=== PATIENT | female | born 1960 | race Caucasian/White ===

== ENCOUNTER 2018-06-30 22:11 | Emergency (ER) | payer MEDICAID ==
[~2018-06-30] VITALS: Ht 149.9 cm; Wt 61.0 kg
[~2018-06-30 22:11] MED LIST: AMOX1TAB10 PO; BENA20TA65 PO; IBUP-1542 PO
[2018-06-30 22:28] VITALS: Ht 149.9 cm; Wt 61.0 kg
[2018-06-30] MEDS ORDERED: ASPIRIN 325 MG TAB PO STA (22:47)
--- NOTE | 2018-06-30 23:59 | ERD ---
ER Documentation Chief Complaint Chief Complaint shaky & palpitations today; hx HTN HPI This is a 58-year-old female with a history of hypertension who presents to the emergency room for evaluation of shakiness and heart palpitations. This patient states that she is taking a medication for high blood pressure but denies any history of diabetes, she denies any current chest pain, nausea vomiting or diarrhea. She denies any headache and states that since she has been in the emergency room her symptoms have improved. ROS All systems reviewed and are negative except as per history of present illness. Medications Home Meds Active Scripts Ibuprofen* (Motrin*) 600 Mg Tab, 600 MG PO Q8, #10 TAB Prov:GABRIEL SCHULTZ DO 12/19/15 Amoxicillin/Potassium Clav (Amox-Clav 875-125 mg Tablet) 875-125 mg Tab, 1 TAB PO BID for 7 Days, #14 TAB Prov:GABRIEL SCHULTZ DO 12/19/15 Reported Medications Benazepril Hcl* (Lotensin*) 20 Mg Tablet, 20 MG PO DAILY, #30 TAB 10/10/15 Allergies Allergies: Coded Allergies: No Known Allergy (Unverified , 12/26/15) PMhx/Soc History of Surgery: Yes (Tubal Ligation) Anesthesia Reaction: No Hx Neurological Disorder: No Hx Respiratory Disorders: No Hx Cardiac Disorders: Yes (HTN) Hx Psychiatric Problems: No Hx Miscellaneous Medical Probl: Yes (Dyslipidemia) Hx Alcohol Use: No Hx Substance Use: No Hx Tobacco Use: No Smoking Status: Never smoker Physical Exam Vitals Vital Signs Date Temp Pulse Resp B/P (MAP) Pulse Ox O2 O2 Flow FiO2 Time Delivery Rate 06/30/18 98.0 73 18 151/72 99 22:28 (98) Physical Exam INITIAL VITAL SIGNS: Reviewed by me GENERAL: The patient is well developed and appropriate for usual state of health in no apparent distress HEENT: Pupils equal, round, and reactive to light. EOMI. There is no scleral icterus. NECK: C-spine is soft and supple, there is no meningismus. There is no cervical lymphadenopathy. LUNGS: Clear to auscultation bilaterally. There are no rales, wheezes or rhonchi. HEART: Regular rate and rhythm, no murmurs, clicks, rubs or gallops. ABDOMEN: Soft, non-tender, non-distended. There are bowel sounds in all four quadrants. No rebound or guarding. EXTREMITIES: There is no peripheral cyanosis or edema. No focal swelling or erythema. NEUROLOGICAL: The patient moves all four extremities with 5/5 strength. Cranial nerves II - XII are intact. Normal gait. Alert and oriented SKIN: There is no apparent rash or petechiae. HEME/LYMPHATIC: There is no evidence of excessive bruising or lymphedema. PSYCHIATRIC: The patient does not appear anxious or depressed. Result Diagram: 06/30/18230206/30/182302 Results 24 hrs Laboratory Tests Test 06/30/18 23:03 White Blood Count 5.6 10^3/ul Red Blood Count 4.22 10^6/ul Hemoglobin 12.0 g/dl Hematocrit 36.7 % Mean Corpuscular Volume 87.0 fl Mean Corpuscular Hemoglobin 28.4 pg Mean Corpuscular Hemoglobin Concent 32.7 g/dl Red Cell Distribution Width 12.4 % Platelet Count 182 10^3/UL Mean Platelet Volume 11.7 fl Immature Granulocytes % 0.200 % Neutrophils % 47.2 % Lymphocytes % 33.3 % Monocytes % 8.6 % Eosinophils % 9.4 % Basophils % 1.3 % Nucleated Red Blood Cells % 0.0 /100WBC Immature Granulocytes # 0.010 10^3/ul Neutrophils # 2.6 10^3/ul Lymphocytes # 1.9 10^3/ul Monocytes # 0.5 10^3/ul Eosinophils # 0.5 10^3/ul Basophils # 0.1 10^3/ul Nucleated Red Blood Cells # 0.0 10^3/ul Sodium Level 140 mmol/L Potassium Level 4.1 mmol/L Chloride Level 109 mmol/L Carbon Dioxide Level 23 mmol/L Anion Gap 8 Blood Urea Nitrogen 18 mg/dl Creatinine 0.87 mg/dl Est Glomerular Filtrat Rate mL/min > 60 mL/min Glucose Level 110 mg/dl Calcium Level 9.9 mg/dl Troponin I < 0.012 ng/ml Current Medications Medications Dose Sig/Manuel Start Time Status Last (Trade) Ordered Route PRN Stop Time Admin Dose Reason Admin Aspirin 325 mg ONCE STAT 06/30/18 DC 06/30/18 (Aspirin) PO 22:47 23:00 06/30/18 22:48 Procedures/MDM EKG: Rate/Rhythm: [Normal Sinus Rhythm] QRS, ST, T-waves: [No changes consistent w/ acute ischemia] Impression: [No evidence of ischemia or arrhythmia] Chest X-ray 1V Interpreted by me: Soft Tissue: No acute abnormalities Bones: No acute abnormalities Mediastinum/Cardiac Silhouette/Lungs: [No acute abnormalities] This 58-year-old female presents the ER for evaluation of heart palpitations which have subsided since being in the emergency room. On my exam the patient is afebrile, nontoxic-appearing and hemodynamically stable. Her EKG is nonischemic at this time and chest x-ray is clear. Patient did have lab work drawn including a troponin which is normal. The patient has no electrolyte abno rmalities at this time. On my reevaluation the patient is sitting in bed comfortably and sleeping. The patient states that she is feeling much better and would like to go home. The patient will be discharged at this time with strict return precautions and she was advised that if she were to develop any chest pain that she can return to the ER immediately for admission. She verbalizes understanding and is okay with our plan of care Departure Diagnosis: Primary Impression: Heart palpitations Additional Impression: Episode of shaking Condition: ZULMA Whiteside DO Jun 30, 2018 23:59
[2018-07-01 00:05] VITALS: BP 113/71; PULSE 69; RESP 16
== END 2018-07-01 00:13 | disposition home or self-care (01) ==
LOC: E/R 22:11
DX: R00.2 Palpitations (principal); I10 Essential (primary) hypertension; R25.1 Tremor, unspecified
CPT/HCPCS: 36415; 71045; 80048; 84484; 85025; 93005; Z7502; Z7610

== ENCOUNTER 2018-07-03 22:34 | Emergency (ER) | payer MEDICAID ==
[~2018-07-03] VITALS: Ht 149.9 cm; Wt 61.2 kg
[2018-07-03 22:37] VITALS: Ht 149.9 cm; Wt 61.2 kg
[2018-07-04] MEDS ORDERED: hydrALAzine 20 MG INJ IV ONE
[2018-07-04 04:48] VITALS: BP 118/79; PULSE 72; RESP 15
--- NOTE | 2018-07-24 04:08 | ERD ---
ER Documentation Chief Complaint Chief Complaint states high bp at home, c/o headache, denies cp or sob. hx of htn HPI This a 58-year female states that she is a high blood pressure, complains of mild headache. She denies chest pain or shortness of breath. She does have history of hypertension and says she is been compliant with her medications. She denies any focal neurological complaints. Denies any visual acuity changes. ROS All systems reviewed and are negative except as per history of present illness. Medications Home Meds Reported Medications Benazepril Hcl* (Lotensin*) 20 Mg Tablet, 20 MG PO DAILY, #30 TAB 10/10/15 Allergies Allergies: Coded Allergies: No Known Allergy (Unverified , 07/03/18) PMhx/Soc History of Surgery: Yes (Tubal Ligation) Anesthesia Reaction: No Hx Neurological Disorder: No Hx Respiratory Disorders: No Hx Cardiac Disorders: Yes (HTN) Hx Psychiatric Problems: No Hx Miscellaneous Medical Probl: Yes (Dyslipidemia) Hx Alcohol Use: No Hx Substance Use: No Hx Tobacco Use: No Smoking Status: Never smoker Physical Exam Physical Exam Const: No acute distress Head: Atraumatic Eyes: Normal Conjunctiva ENT: Normal External Ears, Nose and Mouth. Neck: Full range of motion. No meningismus. Resp: Clear to auscultation bilaterally Cardio: Regular rate and rhythm, no murmurs Abd: Soft, non tender, non distended. Normal bowel sounds Skin: No petechiae or rashes Back: No midline or flank tenderness Ext: No cyanosis, or edema Neur: Awake and alert Psych: Normal Mood and Affect Results 24 hrs Laboratory Tests Test 07/03/18 23:43 07/04/18 09:38 White Blood Count 7.8 10^3/ul Red Blood Count 4.45 10^6/ul Hemoglobin 12.6 g/dl Hematocrit 38.2 % Mean Corpuscular Volume 85.8 fl Mean Corpuscular Hemoglobin 28.3 pg Mean Corpuscular Hemoglobin Concent 33.0 g/dl Red Cell Distribution Width 12.3 % Platelet Count 183 10^3/UL Mean Platelet Volume 11.7 fl Immature Granulocytes % 0.300 % Neutrophils % 61.4 % Lymphocytes % 24.5 % Monocytes % 7.0 % Eosinophils % 5.8 % Basophils % 1.0 % Nucleated Red Blood Cells % 0.0 /100WBC Immature Granulocytes # 0.020 10^3/ul Neutrophils # 4.8 10^3/ul Lymphocytes # 1.9 10^3/ul Monocytes # 0.6 10^3/ul Eosinophils # 0.5 10^3/ul Basophils # 0.1 10^3/ul Nucleated Red Blood Cells # 0.0 10^3/ul Prothrombin Time 12.6 Sec Prothrombin Time Ratio 1.0 INR International Normalized Ratio 0.93 Activated Partial Thromboplast Time 29.4 Sec Sodium Level 141 mmol/L Potassium Level 4.4 mmol/L Chloride Level 103 mmol/L Carbon Dioxide Level 25 mmol/L Anion Gap 13 Blood Urea Nitrogen 25 mg/dl Creatinine 0.97 mg/dl Est Glomerular Filtrat Rate mL/min 59 mL/min Glucose Level 105 mg/dl Calcium Level 10.0 mg/dl Troponin I < 0.012 ng/ml Lab Scanned Report LAB [id number] Current Medications Medications Dose Sig/Manuel Start Time Status Last (Trade) Ordered Route PRN Stop Time Admin Dose Reason Admin Hydralazine 20 mg ONCE ONCE 07/04/18 DC HCl IV 00:00 (Apresoline) 07/04/18 00:01 Procedures/MDM Diagnostic data: EKG: Rate/Rhythm: [Normal Sinus Rhythm] QRS, ST, T-waves: [No changes consistent w/ acute ischemia], normal interv als, normal axis, upgoing T waves Impression: [No evidence of ischemia or arrhythmia] Chest X-ray 1V Interpreted by me: Soft Tissue: No acute abnormalities Bones: No acute abnormalities Mediastinum/Cardiac Silhouette/Lungs: [No acute abnormalities] Medical decision making: Patient's neurologic symptoms have stabilized while they have been evaluated in the department and are appropriate for outpatient work up. No e/o meningitis, intracranial bleed, seizure, stroke. Patient's blood pressure was elevated (>120/80) but appears stable without evidence of hypertension emergency or urgency. The patient was counseled about the risks of hypertension and urged to pursue outpatient monitoring and therapy within a week with their primary care physician. Departure Diagnosis: Primary Impression: Hypertension Hypertension type: unspecified Qualified Codes: I10 - Essential (primary) hypertension Condition: Stable Patient Instructions: High Blood Pressure (Hypertension) MARGARITA ARRIAGA Jul 24, 2018 04:08
== END 2018-07-04 04:50 | disposition home or self-care (01) ==
LOC: E/R 22:34
DX: I10 Essential (primary) hypertension (principal); R07.9 Chest pain, unspecified
CPT/HCPCS: 36415; 70450; 71045; 80048; 84484; 85025; 85610; 85730; 93005